=== PATIENT | male | born 1975 | race Caucasian/White ===

== ENCOUNTER 2022-09-27 09:32 | Outpatient (CLI) | payer OTHER, SELFPAY ==
[2022-09-27 11:35] LABS: Absolute Neutrophil Count 4.2 X10^3/uL (2.0-7.7); Basophil# 0.03 X10^3/uL; Basophil% 0.4 % (0-1); Eosinophil# 0.12 X10^3/uL; Eosinophils% 1.7 % (0-5); Hematocrit 47.6 % (40-54); Hemoglobin 16.5 g/dL (13.0-16.5); Lymphocyte % 31.3 % (19-41); Mean Corp Hgb Conc 34.7 g/dL (32-36); Mean Corpuscular Hgb 29.5 pg (27.0-32.0); Mean Corpuscular Volume 85.2 fL (80-94); Mean Platelet Vol. 9.7 fl (6.2-12.0); Monocyte# 0.47 X10^3/uL; Monocyte% 6.7 % (0-10); NRBC Flagged by Analyzer 0 % (0-5); Neutrophil # 4.15 X10^3/uL (2.7-7.7); Neutrophil % 59.2 % (47-70); Platelet Count 385 K/mm3 (150-450); RBC Distribution Width CV 12.4 % (11.6-14.6); RBC Distribution Width SD 38.3 fl (35.1-43.9); Red Blood Count 5.59 M/mm3 (4.6-6.2)
[2022-09-27 12:19] LABS: ALB/GLOB Ratio 1.2 RATIO (0.9-2.4); AST(SGOT) 22 U/L (15-37); Alanine Aminotransfer ALT/SGPT 34 U/L (16-61); Albumin, Serum 4.2 g/dL (3.2-5.0); Alkaline Phosphatase 116 U/L (45-117); Anion Gap 8 (5-15); BUN 14 mg/dL (7-18); BUN/Creat Ratio 14.5 RATIO (10-20); Calcium,Total 9.1 mg/dL (8.5-10.1); Chloride 97 mmol/L (98-107); Cholesterol 269 mg/dL (200); Creatinine, Serum 0.96 mg/dL (0.70-1.30); EST Glomerular Filtration Rate 89 mL/min (>60); Est Glom Filt Rate - Afr Amer 108 mL/min (>60); Globulin 3.6 g/dL (2.2-4.2); Glucose 245 mg/dL (74-106); High Density Lipoprotein 40 mg/dL; Potassium 4.4 mmol/L (3.5-5.1); Protein, Total 7.8 g/dL (6.4-8.2); Sodium Level 134 mmol/L (136-145); Triglycerides 396 mg/dL
[2022-09-27 12:20] LABS: Thyroid Stim Hormone (TSH) 3.21 uIU/mL (0.358-3.74); Very Low Density Lipoprotein 79 mg/dL (5-40)
== END 2022-09-27 23:59 | disposition home or self-care (01) ==
PROVIDERS: Referring Provider Internal Medicine Endocrinology, Diabetes & Metabolism; Visit Provider Internal Medicine Endocrinology, Diabetes & Metabolism
DX: E11.9 Type 2 diabetes mellitus without complications (principal); E55.9 Vitamin D deficiency, unspecified
CPT/HCPCS: 36415; 80053; 80061; 82306; 84443; 85025

== ENCOUNTER → 2022-12-05 | Outpatient (CLI) | payer OTHER, SELFPAY ==
[2022-12-05 11:36] LABS: Microalbumin,Random Urine 10.9 mg/L (NO RANGE EST.); Microalbumin:Creatinine Ratio 11.3 mg/g CRE (<30 mg/g CRE)
[2022-12-05 11:44] LABS: Vitamin D,25 Hydroxy 21.9 ng/mL
[2022-12-05 11:52] LABS: ALB/GLOB Ratio 1.2 RATIO (0.9-2.4); AST(SGOT) 21 U/L (15-37); Alanine Aminotransfer ALT/SGPT 37 U/L (16-61); Albumin, Serum 4.2 g/dL (3.2-5.0); Alkaline Phosphatase 94 U/L (45-117); Anion Gap 6 (5-15); BUN 18 mg/dL (7-18); BUN/Creat Ratio 17.5 RATIO (10-20); Calcium,Total 9.6 mg/dL (8.5-10.1); Chloride 103 mmol/L (98-107); Cholesterol 297 mg/dL (200); Creatinine, Serum 1.03 mg/dL (0.70-1.30); EST Glomerular Filtration Rate 82 mL/min (>60); Est Glom Filt Rate - Afr Amer 100 mL/min (>60); Follicle Stimulating Hormone 7.1 mIU/mL; Globulin 3.5 g/dL (2.2-4.2); Glucose 165 mg/dL (74-106); High Density Lipoprotein 49 mg/dL; Luteinizing Hormone 3.3 mIU/mL; Potassium 4.5 mmol/L (3.5-5.1); Prolactin 8.5 ng/mL; Protein, Total 7.7 g/dL (6.4-8.2); Sodium Level 138 mmol/L (136-145); Thyroid Stim Hormone (TSH) 3.19 uIU/mL (0.358-3.74); Triglycerides 194 mg/dL; Very Low Density Lipoprotein 39 mg/dL (5-40)
[2022-12-08 12:09] LABS: Testosterone, Free 11.15 ng/dL (5.00-21.00)
[2022-12-08 17:43] LABS: Testosterone, % Free 2.28 % (1.50-4.20); Testosterone, Total 489 ng/dL (264-916)
== END | disposition home or self-care (01) ==
LOC: LAB 09:11
PROVIDERS: Referring Provider Internal Medicine Endocrinology, Diabetes & Metabolism; Visit Provider Internal Medicine Endocrinology, Diabetes & Metabolism
DX: E11.65 Type 2 diabetes mellitus with hyperglycemia (principal); I10 Essential (primary) hypertension; E55.9 Vitamin D deficiency, unspecified
CPT/HCPCS: 36415; 80053; 80061; 82043; 82306; 82570; 83001; 83002; 84146; 84402; 84403; 84443

== ENCOUNTER → 2024-01-12 | Outpatient (CLI) | payer OTHER, SELFPAY ==
--- OUTSIDE RECORDS SUMMARY | 2024-01-12 10:33 | XMS RPT_ITS | CCD ---
Author Name Unknown Address [address] [place] [address] Organization [facility] Care Team Providers Care Furniture Upholsterer Name Role Phone Chelsey, Bijan Attending Unavailable Chelsey, Bijan Primary Care Unavailable Chelsey, Bijan Admitting Unavailable Chelsey, Bijan Attending Unavailable Chelsey, Bijan Primary Care Unavailable Chelsey, Bijan Attending Unavailable Chelsey, Bijan Primary Care Unavailable Chelsey, Bijan Attending Unavailable Chelsey, Bijan Primary Care Unavailable Chelsey, Bijan Admitting Unavailable Chelsey, Bijan Admitting Unavailable Chelsey, Bijan Attending Unavailable Chelsey, Bijan Primary Care Unavailable Chelsey, Bijan Attending Unavailable Chelsey, Bijan Primary Care Unavailable Chelsey, Bijan Admitting Unavailable Chelsey, Bijan Attending Unavailable Chelsey, Bijan Primary Care Unavailable Chelsey, Bijan Admitting Unavailable Chelsey, Bijan Attending Unavailable Chelsey, Bijan Primary Care Unavailable Chelsey, Bijan Attending Unavailable Chelsey, Bijan Primary Care Unavailable Chelsey, Bijan Admitting Unavailable Chelsey, Bijan Admitting Unavailable Chelsey, Bijan Attending Unavailable Chelsey, Bijan Primary Care Unavailable Chelsey, Bijan Attending Unavailable Chelsey, Bijan Primary Care Unavailable Chelsey, Bijan Admitting Unavailable Chelsey, Bijan Attending Unavailable Chelsey, Bijan Primary Care Unavailable Chelsey, Bijan Admitting Unavailable Chelsey, Bijan Attending Unavailable Chelsey, Bijan Primary Care Unavailable Chelsey, Bijan L Primary Care Provider Medications Completed/Discontinued Medications Medication Drug Class(es) Dates Sig (Normalized) Sig (Original) Syringe with Needle, Disp, (BD LUER-KINGA SYRINGE) 3 mL 21 x 1 1/2 syrg (1 source) Start: 01-31-2014 Syringe with Needle, Disp, (BD LUER-KINGA SYRINGE) 3 mL 21 x 1 1/2 syrg 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 hypofunction] Onset: 07-25-2012 07-30-2012 Chronic Other endocrine disorders (1 source) Empty sella syndrome; Translations: [Other disorders of pituitary gland] Onset: 08-29-2012 08-29-2012 Chronic Other male genital disorders (1 source) Male erectile dysfunction, unspecified; Translations: [Impotence of organic origin] Onset: 07-25-2012 07-25-2012 Chronic Past or Other Problems Problem Classification Problem Date Documented Da te Episodic/Chronic Malaise and fatigue (1 source) Fatigue; Translations: [Other fatigue] Onset: 07-25-2012 07-25-2012 Episodic Results Test Name Value Interpretation Reference Range Facil ity Encounters Encounter Date Encounter Type Care Provider Facility Start: 01-21-2019 End: 01-22-2019 Patient encounter procedure [facility] Facility:[facility] Start: 01-18-2019 End: 01-19-2019 Patient encounter procedure [facility] Facility:[facility] Start: 01-11-2019 End: 01-12-2019 Patient encounter procedure [facility] Facility:[facility] Start: 11-16-2018 End: 11-17-2018 Patient encounter procedure [facility] Facility:[facility] Start: 11-16-2018 End: 11-17-2018 Patient encounter procedure [facility] Facility:[facility] Start: 08-07-2018 End: 08-08-2018 Patient encounter procedure [facility] Facility:[facility] Start: 07-24-2018 End: 07-25-2018 Patient encounter procedure [facility] Facility:[facility] Start: 07-24-2018 End: 07-25-2018 Patient encounter procedure [facility] Start: 04-28-2018 End: 04-28-2018 Patient encounter procedure [facility] Barbosa Facility:[facility] Start: 01-26-2018 End: 01-27-2018 Patient encounter procedure Bijan Barbosa Facility:[facility] Start: 03-30-2015 End: 03-30-2015 REFILL - DARAT Marco A Arredondo MD Work Phone: Endocrinology Plan of Treatment Date Care Activity Detail Author Start: 06-30-2021 Influenza vaccination INFLUENZA (Sea son Ended) [facility] Start: 01-31-2015 3 comp foot exam completed DIABETIC FOOT EXAM [facility] Start: 08-02-2014 Hemoglobin A1c/Hemoglobin.total in Blood HBA1C [facility] Start: 01-30-2012 Hepatitis C antibody , confirmatory test DILATED RETINAL EXAM [facility] Start: 1994 Urine microalbumin profile DTAP,TDAP ,TD (1 - Tdap) [facility] Start: 1993 Hepatitis B surface antibody level LDL CHOLESTEROL [facility] Start: 1993 HEPATITIS C SCREENING HEPATITIS C SC REENING [facility] Start: 1993 HIV SCREENING HIV SCREENING [facility] Start: 1991 ONE PNEUMOVAX PRIOR TO AGE 65 ONE PNEUMOVAX PRIOR TO AGE 65 [facility] Start: 1987 Adult depression scr eening assessment DEPRESSION SCREENING [facility] Start: 1985 Hepatitis B screening URINE AL BUMIN:CREATININE RATIO [facility] Payers Date Payer Category Payer Private Health Insurance 2009 Private Health Insurance KIANNA POWELL OAP [id number] 2009-Present PPO [id number] 1975 Unknown [id number] .1975 Unknown [id number] [id number] .1975 Unknown [id number] [id number] .7 1975 Unknown [id number] 2..[id number] .7 1975 Unknown [id number] 2.16.840.1.130578.3.579.2 .1975 Unknown [id number] 2.16.840.1.113424.3.579.2 .1975 Unknown [id number] 2.16.840.1.611170.3.579.2 .1975 Unknown [id number] 2.16.840.1.821797.3.579.2 .1975 Unknown [id number] 2.16.840.1.698504.3.579.2 .1975 Unknown [id number] 2.16.840.1.335820.3.579.2 .1975 Unknown [id number] [id number] .1975 Unknown [id number] 2.840.1.843110.3.579.2 .1975 Unknown [id number] 2.16.840.1.369761.3.579.2 . Social History Date Type Detail Facility Start: 01-31-2014 [facility] Current [facility] day smoker [facility] History of tobacco use Cigarette Smoker [facility] Start: 01-31-2014 Cigarettes smoked cu rrent (pack per day) - Reported [facility] Start: 01-31-2014 Tobacco use and exposure Never used [facility] Start: 01-31-2014 Alcohol intake Not Asked [facility] Start: 01-29-2013 Tobacco Comment smokes 1 pack per we ek [facility] Start: 1975 Sex Assigned At Not on file [facility] Summary Purpose Family History No Family History Records FoundNo Family History Records Found Advance Directives No Advanced Directives Records FoundNo Advanced Directives Records Found Additional Source Comments (unrecognized sect ion and content) No Status Records FoundNo Status Records Found INFORMATION SOURCE (unrecogn ized section and content) DATE CREATED AUTHOR AUTHOR'S VALENTINO ATION 07/16/2019 [facility] Source Comments (unrecognize d section and content) In the event this informatio n is protected by the Federal Confidentiality of Alcohol and Drug Abuse Patient Records regulations: The Federal rules restrict any use of the information to criminally investigate or prosecute any alcohol or drug abuse patient.[facility] Reason for Visit (unrecogniz ed section and content) FOR RECORDS PERTAINING TO PATIENTS WHO ARE OR HAVE BEEN ENROLLED IN A CHEMICAL DEPENDENCY/SUBSTANCEABUSE PROGRAM, SOME INFORMATION MAY BE OMITTED. This clinical summary was aggregated from multiple sources. Caution should be exercised in using it in the provision of clinical care. This summary normalizes information from multiple sources, and as a consequence, information in this document may materially change the coding, format and clinical context of patient data. In addition, data may be omitted in some cases. CLINICAL DECISIONS SHOULD BE BASED ON THE PRIMARY CLINICAL RECORDS. [facility] [employer] [facility]. provides no warranty or guarantee of the accuracy or completeness of information in this document.
[2024-01-12 10:48] LABS: Microalbumin,Random Urine < 5.0 mg/L (NO RANGE EST.)
[2024-01-12 11:39] LABS: ALB/GLOB Ratio 1.1 RATIO (0.9-2.4); AST(SGOT) 13 U/L (15-37); Alanine Aminotransfer ALT/SGPT 31 U/L (16-61); Albumin, Serum 4.1 g/dL (3.2-5.0); Alkaline Phosphatase 115 U/L (45-117); Anion Gap 5 (5-15); BUN 12 mg/dL (7-18); BUN/Creat Ratio 11.5 RATIO (10-20); Calcium,Total 9.1 mg/dL (8.5-10.1); Chloride 105 mmol/L (98-107); Cholesterol 236 mg/dL (200); Creatinine, Serum 1.04 mg/dL (0.70-1.30); EST Glomerular Filtration Rate 81 mL/min (>60); Est Glom Filt Rate - Afr Amer 98 mL/min (>60); Globulin 3.8 g/dL (2.2-4.2); Glucose 154 mg/dL (74-106); High Density Lipoprotein 42 mg/dL; Potassium 4.4 mmol/L (3.5-5.1); Protein, Total 7.9 g/dL (6.4-8.2); Sodium Level 137 mmol/L (136-145); Thyroid Stim Hormone (TSH) 1.86 uIU/mL (0.358-3.74); Triglycerides 197 mg/dL; Very Low Density Lipoprotein 39 mg/dL (5-40)
== END | disposition home or self-care (01) ==
LOC: LAB 09:53
PROVIDERS: Referring Provider Internal Medicine Endocrinology, Diabetes & Metabolism; Visit Provider Internal Medicine Endocrinology, Diabetes & Metabolism
DX: E11.9 Type 2 diabetes mellitus without complications (principal); I10 Essential (primary) hypertension; E78.2 Mixed hyperlipidemia
CPT/HCPCS: 36415; 80053; 80061; 82043; 82570; 84443

== ENCOUNTER 2025-04-25 11:51 | Outpatient (CLI) | payer OTHER, SELFPAY ==
[2025-04-25 12:37] LABS: Microalbumin,Random Urine < 12.0 mg/L (NO RANGE EST.); Microalbumin:Creatinine Ratio UNABLE TO CALCULATE mg/g CRE
[2025-04-25 13:30] LABS: ALB/GLOB Ratio 1.7 RATIO (0.9-2.4); AST(SGOT) 18 U/L (<=37); Alanine Aminotransfer ALT/SGPT 21 U/L (<=46); Albumin, Serum 4.6 g/dL (3.5-5.0); Alkaline Phosphatase 109 U/L (40-129); Anion Gap 11 (5-15); BUN 12 mg/dL (4-19); BUN/Creat Ratio 12.7 RATIO (10-20); Calcium,Total 9.8 mg/dL (7.6-11.0); Carbon Dioxide 24.7 mmol/L (21.0-32.0); Chloride 102 mmol/L (98-108); Cholesterol 244 mg/dL (<=200); Creatinine, Serum 0.91 mg/dL (0.70-1.20); EST Glomerular Filtration Rate 103 (>60); Globulin 2.7 g/dL (2.2-4.2); Glucose 165 mg/dL (70-99); High Density Lipoprotein 42 mg/dL; Potassium 4.6 mmol/L (3.3-5.1); Protein, Total 7.4 g/dL (5.9-8.4); Sodium Level 138 mmol/L (133-145); Total Bilirubin 0.46 mg/dL (0.00-1.30); Triglycerides 121 mg/dL
[2025-04-25 13:31] LABS: Low Density Lipoprotein Calc. 178 mg/dL; Very Low Density Lipoprotein 24 mg/dL (5-40); Vitamin D,25 Hydroxy 23.5 ng/mL (30-100); cholesterol:hdl ratio screen 5.87
== END 2025-04-25 23:59 | disposition home or self-care (01) ==
LOC: LAB 11:53
PROVIDERS: Referring Provider Internal Medicine Endocrinology, Diabetes & Metabolism; Visit Provider Internal Medicine Endocrinology, Diabetes & Metabolism
DX: E11.65 Type 2 diabetes mellitus with hyperglycemia (principal); E78.2 Mixed hyperlipidemia
CPT/HCPCS: 36415; 80053; 80061; 82043; 82306; 82570; 84443